=== PATIENT | female | born 1950 | race Caucasian/White ===

== ENCOUNTER 2017-04-17 16:44 | Emergency (ER) | payer OTHER ==
[2017-04-17 16:49] VITALS: BP 154/97; TEMP 97.3; BMI 27.4
--- NOTE | 2017-04-17 17:04 | ED.PDOC ---
General ED Provider: Dr. KWADWO STORY Chief Complaint: Finger Laceration Stated Complaint: Cut left thumb with machette Time Seen by Physician: 16:50 Mode of Arrival: Walk-In Information Source: Patient Exam Limitations: No limitations Nursing and Triage Documentation Reviewed and Agree: Yes Review of Systems - Review Of Systems Constitutional: Reports: No symptoms Musculoskeletal: Reports: No symptoms Skin: Reports: Lesions (Laceration L thumb/dorsum) Neurological: Reports: No symptoms All Other Systems: Reviewed and Negative Past Medical History - Past Medical History Previously Healthy: Yes Endocrine: Reports: None Cardiovascular: Reports: Hypertension Respiratory: Reports: None Hematological: Reports: None Gastrointestinal: Reports: None Genitourinary: Reports: None Neuro/Psych: Reports: None Musculoskeletal: Reports: None Cancer: Reports: None Last Menstrual Period: none - Surgical History General Surgical History: Reports: Unknown - Family History Family History: Reports: Unknown - Social History Smoking Status: Current every day smoker, Light tobacco smoker Hx Substance Use: No Alcohol Screening: None - Immunizations Tetanus Shot up to Date: Yes Physical Exam - Physical Exam Appearance: Well-appearing Pain Distress: Mild Skin: Warm, Dry, Normal color (Laceration, dursum, L thumb) Neurological: Sensation intact, Motor intact, Alert, Oriented, Disoriented Psychiatric: Affect appropriate, Mood appropriate Procedures - Laceration/Wound Repair No standard instances Wound Description: Flap Wound Length (cm): 8 cm Wound Width: 3 mm Wound Depth: 2mm Wound Explored: Clean Wound Prep: Saline Wound Repaired With: Steri-strips, Dermabond Critical Care Note - Critical Care Note Total Time (mins): 12 Course - Course Vital Signs: Temp Pulse Resp BP Pulse Ox 04/17/17 16:44 97.3 F L 88 20 154/97 H 94 L Departure - Departure Time of Disposition: 17:05 Disposition: HOME SELF-CARE Discharge Problem: Laceration of thumb without complication Qualifiers: Encounter type: initial encounter Laterality: left Qualifier Code: (S61.012A) Laceration without foreign body of left thumb without damage to nail, initial encounter Instructions: Laceration (ED) Condition: Good Pt referred to PMD for follow-up: Yes (Follow up as needed; call for appointment ) Additional Instructions: Allow steri strips to wear off; keep dressing on for at least 6 days. Cover hand and splint/bandage with a plastic cover when washing meanwhile. Watch for signs of infection. Prescriptions: Tramadol HCl [Ultram] 50 mg PO Q4H #10 tablet Allergies/Adverse Reactions: Allergies No Known Allergies Allergy (Verified 04/17/17 16:49) Home Medications: Ambulatory Orders Tramadol HCl [Ultram] 50 mg PO Q4H #10 tablet 04/17/17 Disposition Discussed With: Patient
== END 2017-04-17 17:15 | disposition home or self-care (01) ==
LOC: ED 16:44
DX: S61.012A Laceration without foreign body of left thumb without damage to nail, initial encounter (principal); W26.0XXA Contact with knife, initial encounter; F17.210 Nicotine dependence, cigarettes, uncomplicated
CPT/HCPCS: 99282